=== PATIENT | female | born 1980 | race Asian ===

== ENCOUNTER 2018-08-28 10:27 | Day surgery (SDC) | payer OTHER ==
[2018-08-28] MEDS ORDERED: LR 1,000 ML IV SCH (13:34)
[2018-08-28] MEDS ORDERED: METOCLOPRAMIDE HCL 10 MG/2 ML VIAL IVP PRN (13:45)
[2018-08-28] MEDS ORDERED: MORPHINE 4 MG/ML INJ. SYRINGE IVP PRN ×3 (13:45)
[2018-08-28] MEDS ORDERED: IBUPROFEN 800 MG TABLET PO PRN (14:00)
[2018-08-28] MEDS ORDERED: ONDANSETRON HCL 4 MG/2 ML VIAL IVP PRN (14:00)
[2018-08-28] MEDS ORDERED: OXYCODONE/ACETAMINOPHEN 5-325 TABLET PO PRN ×2 (14:00)
[2018-08-28 14:44] VITALS: BP_SYST 121
== END 2018-08-28 16:00 | disposition home or self-care (01) ==
LOC: SMU 10:27 → SDS 10:27
PROVIDERS: ATTEND Obstetrics & Gynecology
DX: N84.0 Polyp of corpus uteri (principal); N83.201 Unspecified ovarian cyst, right side; N83.202 Unspecified ovarian cyst, left side; Z82.49 Family history of ischemic heart disease and other diseases of the circulatory system; Z83.3 Family history of diabetes mellitus; Z80.9 Family history of malignant neoplasm, unspecified; Z68.33 Body mass index [BMI] 33.0-33.9, adult; E66.3 Overweight; Z98.890 Other specified postprocedural states; Z90.49 Acquired absence of other specified parts of digestive tract; Z79.899 Other long term (current) drug therapy; Z68.32 Body mass index [BMI] 32.0-32.9, adult
CPT/HCPCS: 58558; J7120; 88305; C1819